=== PATIENT | female | born 1965 ===

== ENCOUNTER 2019-01-18 10:34 | Day surgery (SDC) | payer OTHER ==
[~2019-01-18 10:34] MED LIST: Acetaminophen TAB* 325 MG PO ONE; Buffered Lidocaine 1% SYRIN* 1 ML/SYRINGE INTRADERM ONE; Famotidine IV* 10 MG/ML 2 ML (20 mg) IV ONE; Gabapentin CAP(*) 300 MG PO ONE; Lactated Ringers 1000 ML Bag* 1,000 ML IV SCH
[2019-01-18] MEDS ORDERED: Acetaminophen TAB* 325 MG ONE (11:33)
[2019-01-18] MEDS ORDERED: Famotidine IV* 10 MG/ML 2 ML (20 mg) ONE (11:33)
[2019-01-18] MEDS ORDERED: ceFAZolin 1 GM ADVAN(*) 1 GM ADDV.VIAL IVPB ONE (11:33)
[2019-01-18] MEDS ORDERED: ceFAZolin 2 GM PREMIX in ORs 2 GM/50 ML BAG ONE (11:33)
[2019-01-18] MEDS ORDERED: Gabapentin CAP(*) 300 MG ONE (11:33)
[2019-01-18] MEDS ORDERED: fentaNYL* 50 MCG/ML 2 ML VIAL (100 MCG VIAL) ONE ×2 (11:54→14:48)
[2019-01-18] MEDS ORDERED: Midazolam* 1 MG/ML 5 ML VIAL (5 MG) ONE (11:54)
[2019-01-18] MEDS ORDERED: ROPIVACAINE 5 MG/ML 30 ML BTL (0.5%) ONE (12:21)
[2019-01-18] MEDS ORDERED: Ropivacaine (OR use only) 2 MG/ML 10 ML ONE (12:21)
[2019-01-18] MEDS ORDERED: Dexamethasone IV* 4 MG/ML 1 ML (4 MG) ONE (13:21)
[2019-01-18] MEDS ORDERED: Propofol* 10 MG/ML 20 ML BTL ONE (13:21)
[2019-01-18] MEDS ORDERED: Ketorolac INJ* 30 MG/ML 1 ML VIAL ONE (13:21)
[2019-01-18] MEDS ORDERED: Ondansetron INJ* 2 MG/ML VIAL ONE (15:03)
[2019-01-18] MEDS ORDERED: PROCHLORPERAZINE INJ 5 MG/ML 2 ML VIAL IV PRN (15:24)
[2019-01-18] MEDS ORDERED: diPHENhydraMINE IV* 50 MG/ML 1 ml VIAL (BENADRYL) IV PRN (15:24)
[2019-01-18] MEDS ORDERED: Levalbuterol 0.63MG/3ML NEB* UNIT OF USE INH PRN (15:24)
[2019-01-18] MEDS ORDERED: DiMENhydriNATE IV* 50 MG/ML VIAL IV PUSH PRN (15:24)
[2019-01-18] MEDS ORDERED: fentaNYL* 50 MCG/ML 2 ML VIAL (100 MCG VIAL) IV PRN (15:24)
[2019-01-18] MEDS ORDERED: HYDROcodone/ACETAMIN 5-325 MG* 1 TAB PO PRN ×2 (15:24)
[2019-01-18] MEDS ORDERED: Naloxone* 0.4 MG/ML 1 ML VIAL IV PRN (15:24)
[2019-01-18 17:55] VITALS: BP 139/84
--- NOTE | 2019-01-18 17:58 | OP ---
Operative Report - Blank - Operative Report Date of Operation: 01/18/19 Note: PATIENT: Jeanette Ragsdale DATE OF : 1965 DATE OF SURGERY: 01/18/2019 SURGEON: Philip Medeiros MD POOL PLAYER: THERESE Coleman, whos assistance was necessary for positioning , retraction, help with instrumentation, and closure. ANESTHESIOLOGIST: Dr. Cervantes PREOPERATIVE DIAGNOSIS: Right post-traumatic ankle arthritis POSTOPERATIVE DIAGNOSIS: Right post-traumatic ankle arthritis OPERATION: Right ankle arthrodesis with tibial bone graft ANESTHESIA: General + nerve block IMPLANTS: Arthrex 6.7mm cannulated screws TOURNIQUET TIME: Less than 2 hours with a well-padded thigh tourniquet at 250mmHg SPECIMENS: none ESTIMATED BLOOD LOSS: minimal COMPLICATIONS: none STATUS: Stable from the operating room to the recovery room and then home. INDICATIONS FOR PROCEDURE: Chelsey has had persistent and worsening pain at her right ankle. Both operative and non-operative treatment alternatives were reviewed. Further, the nature and risks of surgery were reviewed in careful detail. Our discussions regarding the risks of surgery included, but were not limited to, infection, wound problems, nerve injury, neuroma, RSD, persistent symptoms, blood clot, nonunion, malunion , adjacent joint arthritis, need for further surgery, failure of the surgery, and even the remote chance of catastrophic complication, including loss of limb. DESCRIPTION OF PROCEDURE: The patient was seen in the preoperative holding unit and informed written consent was obtained. The appropriate extremity was marked. The patient was then brought to the operating room and carefully positioned on the operating room table. Anesthesia was induced. All bony prominences were padded with great care. A well-padded thigh tourniquet was placed. A chlorhexidine based pre- scrub was performed followed by a chloraprep prep and drape in standard sterile fashion. A surgical safety pause was then conducted in which we confirmed the appropriate patient, extremity, planned procedure, availability of equipment, indication and administration of prophylactic antibiotics, and DVT prophylaxis in the form of a compression boot on the non-surgical extremity. I began with an Esmarch exsanguination of the limb and inflated the tourniquet. An anterior approach was used to gain access to the ankle joint. This was between the tibialis anterior and the extensor hallucis longus tendon. Great care was taken to protect the neurovascular bundle. After this had been done, the joint capsule was opened and the periosteum was taken with it. There was advanced degenerative change of the joint. Osteophytes were excised. Laminar spreaders were placed in the joint and a combination of a scalpel and curettes were used to remove any remaining cartilage from the joint surfaces. I then prepared the tibial plafond and talar dome for fusion. This was performed with a kelton, small drill, and osteotomes. The joint was then thoroughly irrigated to remove any remaining debris. I then turned my attention to the lateral tibial plateau. An incision was made over Gerdy's tubercle and I carefully dissected down to the lateral aspect of the proximal tibia. I then used a Jamshidi needle to extract cancellous bone graft. This bone graft was then packed into the ankle joint fusion site. I also packed some demineralized bone matrix and cancellous allograft chips into bone voids and along the anterior joint line. The ankle was then placed in a neutral position and a guidewire for the 6.7 mm screw was advanced from the medial metaphysis across the joint line into the the talus. This was imaged to ensure satisfactory positioning. After this had been done, a second K-wire was used to further stabilize the joint. A 6.7 mm partially threaded screw was then advanced from over the first pin and achieved excellent purchase and compression of the joint. I then placed 2 more compression screws, one from medial to lateral, and another from lateral to medial. All 3 screws had excellent purchase. Fluoroscopy was used throughout the case to assist in reduction and placement of the hardware. At the end of the case, final fluoroscopic images were obtained. The wounds were copiously irrigated and meticulously closed in layers utilizing 3-0 Monocryl and 3-0 nylon for the skin. A sterile dressing was then applied followed by a well-padded splint. The patient was then awakened from anesthesia and transferred to the recovery room in stable condition. There were no complications. All needle and sponge counts were correct at the end of the case. ATTESTATION: I attest I was present and scrubbed and performed the critical portions of the procedure myself. POSTOPERATIVE PLAN: The plan is for nonweightbearing for anticipated duration of 8 weeks. Follow-up will be in 2 weeks for likely suture removal, x-rays, and transition to a short-leg nonweightbearing cast. She has quit smoking so we will use aspirin for DVT prophylaxis.
== END 2019-01-18 18:03 | disposition home or self-care (01) ==
LOC: OR 10:34
PROVIDERS: ATTEND Orthopaedic Surgery
DX: M19.171 Post-traumatic osteoarthritis, right ankle and foot (principal); M25.371 Other instability, right ankle; F41.8 Other specified anxiety disorders; F17.210 Nicotine dependence, cigarettes, uncomplicated; G89.18 Other acute postprocedural pain; I10 Essential (primary) hypertension; J42 Unspecified chronic bronchitis; E55.9 Vitamin D deficiency, unspecified
CPT/HCPCS: 76000; 81025; A9270-GY; C1713; C1776; C9359; J0690; J1100; J1885; J2250; J2405; J2704; J2795; J3010